=== PATIENT | male | born 1960 | race Caucasian/White ===

== ENCOUNTER 2022-07-24 09:12 | Inpatient (IN) | payer OTHER ==
[2022-07-24] MEDS ORDERED: Piperacillin/Tazobactam 4.5 GM VIAL ONE (09:56)
[2022-07-24] MEDS ORDERED: Ondansetron PF 4 MG/2 ML Vial ONE (09:56)
[2022-07-24] MEDS ORDERED: Ketorolac Tromethamine 30 MG/ML VIAL ONE (09:56)
[2022-07-24] MEDS ORDERED: Morphine 4 MG/ML VIAL ONE (09:56)
[2022-07-24 10:15] LABS: #Basophils 0.1 10x3/uL (0.0-0.2); #Eosinphils 0.2 10x3/uL (0.0-0.5); #Monocytes 1.2 10x3/uL (0.0-1.1); #Neutrophils 6.7 10x3/uL (1.5-8.4); %Basophils 0.7 % (0.0-2.0); %Eosinophils 2.3 % (0.0-6.0); %Lymphocytes 16.6 % (18.0-47.0); %Monocytes 11.7 % (0.0-10.0); %Neutrophils 67.9 % (40.0-75.0); Hemoglobin 13.3 g/dL (13.5-17.5); Mean Corpuscular HGB CONC 34.9 g/dL (32.0-36.0); Mean Corpuscular Hemoglobin 31.2 pg (27.0-33.0); Mean Corpuscular Volume 89.4 fl (81.2-95.1); Mean Platelet Volume 9.4 fl (7.4-10.4); Platelet Count 316 10x3/uL (150-450); RBC Distribution Width 13.2 % (11.5-14.5); Red Blood Cell (RBC) Count 4.26 10x6/uL (4.32-5.72); White Blood Cell (WBC) Count 9.8 10x3/uL (3.5-10.5)
[2022-07-24 10:20] LABS: Clarity Slightly Cloudy (Clear); Glucose, Urine (Dipstick) Normal (Negative); Ketone, Urine Negative (Negative)
[2022-07-24 10:27] LABS: Bilirubin Unable to Interpret (Negative); Blood, Urine Unable to Interpret (Negative); Leukocyte Unable to Interpret (Negative); Nitrite Unable to Interpret (Negative); Protein, Urine (Dipstick) Unable to Interpret mg/dl (Neg-Trace); Urobilinogen UNABLE TO INTERPRET mg/dL (Less than 2)
[2022-07-24 10:29] LABS: RBC/HPF 0-3 HPF (0-3); Squamous Epithelial 0-3 HPF (0-3)
[2022-07-24 10:30] LABS: Bacteria/HPF None Seen HPF (None Seen); Renal Epithelial 0-3 HPF (None Seen)
[2022-07-24 10:32] LABS: ALT (SGPT) 68 U/L (8-55); AST (SGOT) 24 U/L (5-34); Albumin 3.9 g/dL (3.5-5.0); Alkaline Phosphatase 85 U/L (40-110); Anion Gap 13 mmol/L (10-20); BUN (Urea Nitrogen) 10 mg/dL (8.4-25.7); Bilirubin, Total 0.4 mg/dL (0.2-1.2); Calc. Creatinine Clearance 0 mL/min (70-130); Calcium 9.7 mg/dL (7.8-10.44); Carbon Dioxide 26 mmol/L (22-29); Chloride 101 mmol/L (98-107); Estimated GFR 99; Globulin 3.6 g/dL (2.4-3.5); Glucose 111 mg/dL (70-105); Potassium 3.4 mmol/L (3.5-5.1); Protein, Total 7.5 g/dL (6.0-8.3); Sodium 137 mmol/L (136-145)
[2022-07-24] MEDS ORDERED: Iopamidol 300 61% 100 ML VIAL FS ONE (12:17)
[2022-07-24] MEDS ORDERED: Ondansetron PF 4 MG/2 ML Vial IVP PRN (13:37)
[2022-07-24] MEDS ORDERED: Acetaminophen 325 MG TAB PO PRN (13:37)
[2022-07-24] MEDS ORDERED: Senokot S 8.6-50 MG TAB PO PRN (13:37)
[2022-07-24] MEDS ORDERED: Ondansetron ODT 4 MG TAB PO PRN (13:37)
[2022-07-24] MEDS ORDERED: Morphine 2 MG/ML VIAL SLOW IVP PRN (13:40)
[2022-07-24] MEDS ORDERED: Morphine 2 MG/ML VIAL ONE (17:39)
[2022-07-24] MEDS ORDERED: Tamsulosin HCl 0.4 MG CAP PO SCH (17:45)
[2022-07-24] MEDS ORDERED: Piperacillin/Tazobactam 3.375 GM in Sodium Chloride 0.9% 100 ML IVPB SCH (18:00)
[2022-07-24] MEDS ORDERED: Oxybutynin 5 MG TAB PO PRN (20:17)
[2022-07-24] MEDS ORDERED: Hyoscyamine SL 0.125 MG TAB SL SCH (20:30)
[2022-07-24] MEDS: Sodium Chloride 0.9% 1,000 ML IV SCH (20:55)
[2022-07-24] MEDS ORDERED: Morphine 4 MG/ML VIAL SLOW IVP PRN (21:00)
[2022-07-24] MEDS ORDERED: Morphine 4 MG/ML VIAL SLOW IVP SCH (21:15)
[2022-07-24] MEDS ORDERED: Ketorolac Tromethamine 30 MG/ML VIAL IVP SCH (21:15)
[2022-07-24] MEDS ORDERED: HYDROmorphone 0.5 MG/0.5 ML SYRINGE SLOW IVP SCH (21:45)
[2022-07-25] MEDS: Morphine 2 MG/ML VIAL SLOW IVP PRN ×4 (02:08→20:16)
[2022-07-25] MEDS: Phenazopyridine HCl 95 MG TAB PO SCH ×5 (02:09→20:20)
[2022-07-25] MEDS: Piperacillin/Tazobactam 3.375 GM in Sodium Chloride 0.9% 100 ML IVPB SCH ×4 (02:09→18:10)
[2022-07-25 06:27] LABS: #Basophils 0.1 10x3/uL (0.0-0.2); #Eosinphils 0.4 10x3/uL (0.0-0.5); #Neutrophils 4.5 10x3/uL (1.5-8.4); %Basophils 0.9 % (0.0-2.0); %Eosinophils 4.8 % (0.0-6.0); %Lymphocytes 22.2 % (18.0-47.0); %Monocytes 12.5 % (0.0-10.0); %Neutrophils 58.6 % (40.0-75.0); Hemoglobin 11.9 g/dL (13.5-17.5); Mean Corpuscular HGB CONC 34.4 g/dL (32.0-36.0); Mean Corpuscular Hemoglobin 31.4 pg (27.0-33.0); Mean Corpuscular Volume 91.3 fl (81.2-95.1); Mean Platelet Volume 8.8 fl (7.4-10.4); Platelet Count 262 10x3/uL (150-450); RBC Distribution Width 13.5 % (11.5-14.5); Red Blood Cell (RBC) Count 3.79 10x6/uL (4.32-5.72); White Blood Cell (WBC) Count 7.7 10x3/uL (3.5-10.5)
[2022-07-25] MEDS: Ketorolac Tromethamine 30 MG/ML VIAL IVP SCH ×4 (06:30→20:15)
[2022-07-25] MEDS: Sodium Chloride 0.9% 1,000 ML IV SCH (06:32)
[2022-07-25] MEDS: HYDROcodone/Acetaminophen 7.5/325 mg Tablet PO PRN ×4 (07:00→22:27)
[2022-07-25 08:04] LABS: Anion Gap 12 mmol/L (10-20); BUN (Urea Nitrogen) 14 mg/dL (8.4-25.7); Calc. Creatinine Clearance 119 mL/min (70-130); Calcium 8.6 mg/dL (7.8-10.44); Carbon Dioxide 27 mmol/L (22-29); Chloride 105 mmol/L (98-107); Estimated GFR 99; Glucose 93 mg/dL (70-105); Potassium 3.5 mmol/L (3.5-5.1); Sodium 140 mmol/L (136-145)
[2022-07-25] MEDS ORDERED: Finasteride 5 MG TAB PO SCH (09:00)
[2022-07-25] MEDS ORDERED: Tamsulosin HCl 0.4 MG CAP PO SCH (09:00)
[2022-07-25] MEDS: buPROPion HCl 100 MG TAB PO SCH (09:18)
[2022-07-25] MEDS: Tamsulosin HCl 0.4 MG CAP PO SCH (09:18)
[2022-07-25] MEDS: Finasteride 5 MG TAB PO SCH (09:18)
[2022-07-25] MEDS: lamoTRIgine 25 MG TAB PO SCH ×2 (09:18→20:21)
[2022-07-25] MEDS ORDERED: B & O PR SCH (19:00)
[2022-07-25] MEDS: Oxybutynin 5 MG TAB PO SCH (20:17)
[2022-07-25] MEDS: Famotidine 20 MG TAB PO SCH (20:19)
[2022-07-26] MEDS: Morphine 2 MG/ML VIAL SLOW IVP PRN (02:47)
[2022-07-26] MEDS: Ketorolac Tromethamine 30 MG/ML VIAL IVP SCH ×3 (02:49→22:50)
[2022-07-26] MEDS: Piperacillin/Tazobactam 3.375 GM in Sodium Chloride 0.9% 100 ML IVPB SCH ×2 (02:52→10:01)
[2022-07-26] MEDS: HYDROcodone/Acetaminophen 7.5/325 mg Tablet PO PRN ×2 (04:08→08:17)
[2022-07-26] MEDS ORDERED: HYDROmorphone 0.5 MG/0.5 ML SYRINGE SLOW IVP SCH (04:30)
[2022-07-26] MEDS ORDERED: B & O PR SCH (05:00)
[2022-07-26 06:06] LABS: Hemoglobin 12.7 g/dL (13.5-17.5); Mean Platelet Volume 9.4 fl (7.4-10.4); Platelet Count 331 10x3/uL (150-450); RBC Distribution Width 13.5 % (11.5-14.5); White Blood Cell (WBC) Count 8.8 10x3/uL (3.5-10.5)
[2022-07-26 06:11] LABS: Lactic Acid 1.4 mmol/L (0.5-2.2)
[2022-07-26 06:17] LABS: Anion Gap 16 mmol/L (10-20); BUN (Urea Nitrogen) 13 mg/dL (8.4-25.7); Calc. Creatinine Clearance 115 mL/min (70-130); Calcium 9.5 mg/dL (7.8-10.44); Carbon Dioxide 24 mmol/L (22-29); Chloride 106 mmol/L (98-107); Estimated GFR 98; Glucose 84 mg/dL (70-105); Potassium 3.7 mmol/L (3.5-5.1); Sodium 142 mmol/L (136-145)
[2022-07-26 06:31] LABS: MDiff Complete? YES
[2022-07-26 06:35] LABS: Band 10 % (5-11); Eosinophils 3 % (0-10); Lymphocytes 26 % (21-51); Monocytes 15 % (0-10); Neutrophil 42 % (42-75); Reactive Lymphocytes 4 % (0-10)
[2022-07-26 06:37] LABS: Giant Platelets SLIGHT; Platelet Morphology Comment Appears Adequate; RBC Morphology Normal
[2022-07-26] MEDS: buPROPion HCl 100 MG TAB PO SCH (08:17)
[2022-07-26] MEDS: Finasteride 5 MG TAB PO SCH (08:17)
[2022-07-26] MEDS: lamoTRIgine 25 MG TAB PO SCH ×2 (08:17→22:49)
[2022-07-26] MEDS: Tamsulosin HCl 0.4 MG CAP PO SCH (08:17)
[2022-07-26] MEDS: Famotidine 20 MG TAB PO SCH (08:17)
[2022-07-26] MEDS: Oxybutynin 5 MG TAB PO SCH ×3 (08:17→22:48)
[2022-07-26] MEDS: Phenazopyridine HCl 95 MG TAB PO SCH ×3 (08:18→22:47)
[2022-07-26] MEDS: Lactated Ringer's 1,000 ML IV SCH ×2 (08:18→14:57)
[2022-07-26] MEDS ORDERED: Iopamidol 300 61% 100 ML VIAL FS ONE (08:58)
[2022-07-26] MEDS ORDERED: Ketorolac Tromethamine 30 MG/ML VIAL IVP SCH (09:00)
[2022-07-26] MEDS ORDERED: Morphine 4 MG/ML VIAL SLOW IVP SCH (09:00)
[2022-07-26] MEDS ORDERED: FENTANYL 500 MCG/10 ML VIAL 1,000 MCG in Sodium Chloride 0.9% 30 ML IV PRN (09:10)
[2022-07-26] MEDS ORDERED: Naloxone HCl 0.4 mg/ml Vial IV PRN (09:10)
[2022-07-26] MEDS ORDERED: Promethazine HCl 25 MG/ML VIAL IM PRN (09:10)
[2022-07-26] MEDS ORDERED: Ondansetron PF 4 MG/2 ML Vial IVP PRN (09:10)
[2022-07-26] MEDS ORDERED: diphenhydrAMINE 50 MG/ML VIAL IVP PRN (09:10)
[2022-07-26] MEDS ORDERED: Zolpidem Tartrate 5 MG TAB PO PRN (09:10)
[2022-07-26] MEDS ORDERED: diphenhydrAMINE 25 MG CAP PO PRN (09:10)
[2022-07-26] MEDS ORDERED: diphenhydrAMINE 50 MG/ML VIAL IM PRN (09:10)
[2022-07-26] MEDS ORDERED: Communication Order-Pharmacy FS SCH (09:15)
[2022-07-26] MEDS: Acetaminophen 500 MG TAB PO SCH ×3 (10:00→22:48)
[2022-07-26] MEDS: Gabapentin 300 MG CAP PO SCH ×3 (10:01→22:47)
[2022-07-26] MEDS: Famotidine/PF 20 mg/2ml Vial SLOW IVP SCH ×2 (10:03→22:50)
[2022-07-27] MEDS: Lactated Ringer's 1,000 ML IV SCH ×4 (01:23→22:43)
[2022-07-27] MEDS: Ketorolac Tromethamine 30 MG/ML VIAL IVP SCH ×4 (03:10→21:11)
[2022-07-27] MEDS: Acetaminophen 500 MG TAB PO SCH ×4 (03:10→21:09)
[2022-07-27 04:24] LABS: #Basophils 0.1 10x3/uL (0.0-0.2); #Eosinphils 0.4 10x3/uL (0.0-0.5); #Monocytes 0.9 10x3/uL (0.0-1.1); #Neutrophils 3.6 10x3/uL (1.5-8.4); %Eosinophils 4.9 % (0.0-6.0); %Lymphocytes 29.4 % (18.0-47.0); %Monocytes 12.8 % (0.0-10.0); %Neutrophils 49.8 % (40.0-75.0); Mean Corpuscular HGB CONC 33.1 g/dL (32.0-36.0); Mean Corpuscular Hemoglobin 30.5 pg (27.0-33.0); Mean Corpuscular Volume 91.9 fl (81.2-95.1); Mean Platelet Volume 8.8 fl (7.4-10.4); Platelet Count 333 10x3/uL (150-450); RBC Distribution Width 13.5 % (11.5-14.5); Red Blood Cell (RBC) Count 3.94 10x6/uL (4.32-5.72); White Blood Cell (WBC) Count 7.2 10x3/uL (3.5-10.5)
[2022-07-27 04:36] LABS: Anion Gap 12 mmol/L (10-20); BUN (Urea Nitrogen) 10 mg/dL (8.4-25.7); Calc. Creatinine Clearance 123 mL/min (70-130); Calcium 8.8 mg/dL (7.8-10.44); Carbon Dioxide 27 mmol/L (22-29); Chloride 107 mmol/L (98-107); Estimated GFR 101; Glucose 88 mg/dL (70-105); Potassium 3.7 mmol/L (3.5-5.1); Sodium 142 mmol/L (136-145)
[2022-07-27] MEDS: Gabapentin 300 MG CAP PO SCH ×3 (08:39→21:09)
[2022-07-27] MEDS: buPROPion HCl 100 MG TAB PO SCH (08:41)
[2022-07-27] MEDS: lamoTRIgine 25 MG TAB PO SCH ×2 (08:41→21:11)
[2022-07-27] MEDS: Finasteride 5 MG TAB PO SCH (08:42)
[2022-07-27] MEDS: Tamsulosin HCl 0.4 MG CAP PO SCH (08:42)
[2022-07-27] MEDS: Phenazopyridine HCl 95 MG TAB PO SCH ×3 (08:42→21:28)
[2022-07-27] MEDS: Oxybutynin 5 MG TAB PO SCH ×3 (08:43→21:11)
[2022-07-27] MEDS: Famotidine/PF 20 mg/2ml Vial SLOW IVP SCH ×2 (08:44→21:09)
[2022-07-28] MEDS: Lactated Ringer's 1,000 ML IV SCH (01:02)
[2022-07-28] MEDS: Ketorolac Tromethamine 30 MG/ML VIAL IVP SCH ×2 (03:22→09:39)
[2022-07-28] MEDS: Acetaminophen 500 MG TAB PO SCH ×2 (03:23→09:38)
[2022-07-28 04:58] LABS: #Basophils 0.1 10x3/uL (0.0-0.2); #Eosinphils 0.4 10x3/uL (0.0-0.5); #Monocytes 0.8 10x3/uL (0.0-1.1); #Neutrophils 3.6 10x3/uL (1.5-8.4); %Basophils 1.1 % (0.0-2.0); %Eosinophils 4.8 % (0.0-6.0); %Lymphocytes 30.7 % (18.0-47.0); %Monocytes 11.6 % (0.0-10.0); %Neutrophils 49.9 % (40.0-75.0); Hemoglobin 11.9 g/dL (13.5-17.5); Mean Corpuscular Hemoglobin 30.6 pg (27.0-33.0); Mean Corpuscular Volume 92.8 fl (81.2-95.1); Mean Platelet Volume 8.9 fl (7.4-10.4); Platelet Count 309 10x3/uL (150-450); RBC Distribution Width 13.4 % (11.5-14.5); Red Blood Cell (RBC) Count 3.89 10x6/uL (4.32-5.72); White Blood Cell (WBC) Count 7.2 10x3/uL (3.5-10.5)
[2022-07-28 05:17] LABS: ALT (SGPT) 51 U/L (8-55); AST (SGOT) 13 U/L (5-34); Albumin 3.1 g/dL (3.5-5.0); Alkaline Phosphatase 58 U/L (40-110); Anion Gap 12 mmol/L (10-20); BUN (Urea Nitrogen) 10 mg/dL (8.4-25.7); Bilirubin, Total 0.2 mg/dL (0.2-1.2); Calc. Creatinine Clearance 119 mL/min (70-130); Calcium 8.8 mg/dL (7.8-10.44); Carbon Dioxide 25 mmol/L (22-29); Chloride 109 mmol/L (98-107); Estimated GFR 99; Globulin 2.8 g/dL (2.4-3.5); Glucose 84 mg/dL (70-105); Potassium 4.1 mmol/L (3.5-5.1); Protein, Total 5.9 g/dL (6.0-8.3); Sodium 142 mmol/L (136-145)
[2022-07-28] MEDS: buPROPion HCl 100 MG TAB PO SCH (09:35)
[2022-07-28] MEDS: Finasteride 5 MG TAB PO SCH (09:36)
[2022-07-28] MEDS: Gabapentin 300 MG CAP PO SCH (09:36)
[2022-07-28] MEDS: lamoTRIgine 25 MG TAB PO SCH (09:37)
[2022-07-28] MEDS: Phenazopyridine HCl 95 MG TAB PO SCH (09:38)
[2022-07-28] MEDS: Tamsulosin HCl 0.4 MG CAP PO SCH (09:38)
[2022-07-28] MEDS: Famotidine/PF 20 mg/2ml Vial SLOW IVP SCH (09:39)
[2022-07-28] MEDS: Oxybutynin 5 MG TAB PO SCH (09:39)
[2022-07-28 14:02] VITALS: BP 124/81; TEMP 98.3
== END 2022-07-28 14:30 | disposition home or self-care (01) | DRG 728 ==
LOC: SUATTDRO 09:12 → CSHERS 09:12 → CSHTELE 17:40 → OBSVTOIN 07-26 08:45 → CSHTELE 07-27 11:57
PROVIDERS: ADMIT Family Medicine; ATTEND Internal Medicine
DX: N41.9 Inflammatory disease of prostate, unspecified (principal); F32.A Depression, unspecified; K21.9 Gastro-esophageal reflux disease without esophagitis; N45.1 Epididymitis; Z20.822 Contact with and (suspected) exposure to COVID-19; N28.1 Cyst of kidney, acquired; N40.1 Benign prostatic hyperplasia with lower urinary tract symptoms; R33.8 Other retention of urine; Z79.899 Other long term (current) drug therapy
CPT/HCPCS: 36415; 51703; 51798; 74177; 74178; 76770; 76870; 80048; 80053; 81003; 81015; 83605; 85025; 87040; 87086; 93005; 93010; 93976; 94760; 96365; 96375; 96376; G0378; J1170; J1885; J1956; J2270; J2272; J2405; J2543; J3010; J3490; J7050; J7120; Q9967; S0028